=== PATIENT | female | born 1985 | race Caucasian/White ===

== ENCOUNTER 2021-04-20 16:00 | Outpatient (REF) | payer MEDICARE, MEDICAID, SELFPAY ==
[2021-04-20 16:24] LABS: MANUAL DIFF FLAG NO
[2021-04-20 16:52] LABS: Basophils Percent Auto 0.5 % (0-2); Hematocrit 32.7 % (37-47); Hemoglobin 9.8 g/dl (12.0-16.0); Imm Gran Abs Auto 0.03 X10*3/uL (0.00-0.03); Imm Gran Pct Auto 0.5 % (0.0-0.4); Lymphocytes Absolute Auto 0.9 X10*3/uL (1.2-4.9); Lymphocytes Percent Auto 14.2 % (20-40); Mean Corpuscular Hemoglobin 22.4 pg (27.0-33.0); Mean Corpuscular Volume 74.8 fL (80-98); Mean Platelet Volume 8.6 fL (9.4-12.3); Monocytes Absolute Auto 0.5 X10*3/uL (0.1-1.2); Monocytes Percent Auto 7.3 % (2-11); Neutrophils Absolute Auto 5.1 X10*3/uL (2.0-8.3); Neutrophils Percent Auto 77.5 % (45-73); Platelet Count 599 X10*3/uL (160-400); Red Blood Count 4.37 X10*6/uL (4.20-5.50); Red Cell Distribution Width 18.2 % (11.0-16.0); White Blood Count 6.6 X10*3/uL (4.8-10.8)
[2021-04-20 17:32] LABS: Alanine Aminotransferase 24 U/L (0-31); Albumin Level 4.2 g/dL (3.5-5.0); Anion Gap 13 (12-20); Aspartate Amino Transferase 17 U/L (5-31); C Reactive Protein 0.08 mg/dL (< or = 0.50); Carbon Dioxide 24 mmol/L (22-29); Chloride 105 mmol/L (96-108); Estimated Glomerular Filt Rate > 60; Potassium 4.4 mmol/L (3.3-5.1); Sodium 138 mmol/L (135-145)
[2021-04-20 17:47] LABS: Erythrocyte Sedimentation Rate 10 MM/HR (0-20)
[2021-04-21 17:01] LABS: Complement C3 101 mg/dL (83-193)
[2021-04-22 07:16] LABS: Anti DNA DS Antibody 9 IU/mL
== END 2021-04-20 16:01 | disposition home or self-care (01) ==
LOC: HO.LAB 16:00
PROVIDERS: Visit Provider Internal Medicine
DX: Z51.81 Encounter for therapeutic drug level monitoring (principal); Z79.899 Other long term (current) drug therapy
CPT/HCPCS: 36415; 80051; 82040; 82565; 84450; 84460; 85025; 85652; 86140; 86160; 86225

== ENCOUNTER 2021-07-15 19:33 | Emergency (ER) | payer MEDICARE, MEDICAID, SELFPAY ==
--- NOTE | ~2021-07-15 | CT_ITS ---
EXAMINATION: CT HEAD WITHOUT CONTRAST CLINICAL INFORMATION: Headache. History of SDH on coumadin. COMPARISON: MRI brain performed earlier same date TECHNIQUE: Contiguous axial imaging was performed from the skull base to vertex without intravenous administration of contrast. This CT examination was performed using dose optimization techniques as appropriate, variously including the following: *Automated exposure control *Adjustment of mA and/or kV according to patient size (this includes techniques or standardized protocols for targeted exams where dose is matched to indication/reason for exam; i.e. extremities or head) *Use of iterative reconstruction technique DLP: 665 mGy-cm FINDINGS: Stable thin mixed attenuation but largely hypodense left convexity subdural collection, with some dependent hyperdense fluid. Trace right posterior convexity subdural collection. These were better delineated on the previous MRI. No new intracranial hemorrhage. Stable mild rightward midline shift of approximately 3 to 4 mm. Stable arachnoid cysts along the vertices, more pronounced on the right. Tiny chronic infarction in right parietal lobe. Intrauterine system normal in size and configuration. The osseous structures and soft tissues are normal. The mastoid air cells and visualized portions of the paranasal sinuses are well aerated. CT/CT head/brain wo con IMPRESSION: Stable bilateral convexity subdural collections, larger on the left associated with 3-4 mm rightward midline shift. No new acute intracranial hemorrhage.
[2021-07-15 19:42] VITALS: BP 104/68; BP 120/84; PULSE 114; PULSE 120; O2SAT 96; O2SAT 98; BMI 27.1
--- NOTE | 2021-07-15 19:46 | ED.HA ---
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 Meyer who did the MRI of the brain which showed multiple subdural hematomas as a cause for the headache and advise the patient to go to the nearest hospital and to be transferred to [facility] for further evaluation and care patient's mother tested her INR yesterday was 3.5. No history of head injury no change in residual deficit no vomiting no fever or chills Related Data Home Medications Medication Instructions Recorded Confirmed acetaminophen 325 mg tablet 500 mg BID 07/15/21 07/15/21 (Tylenol) aspirin 81 mg chewable tablet 1 tab PO DAILY 07/15/21 07/15/21 atorvastatin 80 mg tablet 1 tab PO DAILY 07/15/21 07/15/21 azathioprine 50 mg tablet 1 tab PO DAILY 07/15/21 07/15/21 folic acid 1 mg tablet 1 tab PO DAILY 07/15/21 07/15/21 methotrexate sodium 2.5 mg tablet 5 tab PO QWEEK 07/15/21 07/15/21 metoprolol succinate 50 mg 1 tab PO DAILY 07/15/21 07/15/21 tablet,extended release 24 hr nortriptyline 50 mg capsule 100 mg PO DAILY 07/15/21 07/15/21 pantoprazole 20 mg tablet,delayed 1 tab PO DAILY 07/15/21 07/15/21 release prednisone 10 mg tablet 4 tab PO DAILY 07/15/21 07/15/21 pregabalin 100 mg capsule 1 cap PO TID 07/15/21 07/15/21 tizanidine 2 mg tablet 1 tab PO BEDTIME 07/15/21 07/15/21 tramadol 100 mg tablet,extended 1 tab PO DAILY PRN 07/15/21 07/15/21 release 24 hr warfarin 5 mg tablet 1 tab PO DAILY 07/15/21 07/15/21 Allergies Allergy/AdvReac Type Severity Reaction Status Date / Time morphine [MORPHINE] Allergy Mild Nausea Verified 07/15/21 20:27 vancomycin [VANCOMYCIN] Allergy Mild LOCALIZED Verified 07/15/21 20:27 REDDNESS HIVE IV azithromycin Allergy Unknown rash Verified 07/15/21 20:27 levofloxacin [From LEVAQUIN] Allergy Unknown RASH Verified 07/15/21 20:27 codeine [CODEINE] AdvReac Mild Nausea Verified 07/15/21 20:27 erythromycin base AdvReac Mild VOMITING Verified 07/15/21 20:27 [ERYTHROMYCIN BASE] Codeine Phosphate Allergy Unknown Nausea Uncoded 07/15/21 20:27 Review of Systems Review of Systems: Yes all other systems are reviewed and are negative [facility] Past Medical History Attestation statement: The following information was validated with the patient. Social History Social History Advance Directives: No Patient : No Physical Exam Vital Signs: Vital Signs: Last Vital Signs Pulse 90 07/16/21 00:30 Resp 16 07/16/21 01:14 BP 102/78 07/16/21 00:30 Pulse Ox 97 07/16/21 00:30 BMI result Body Mass Index 27.1 Appearance: Alert. Oriented X3. No acute distress. Eyes: Congenital dysconjugate eyes, No Nystagmus ENT: Pharynx normal. Oral Mucosa moist Neck: Normal inspection. Neck supple. CVS: Normal heart rate and rhythm. Pulses normal. Respiratory: No respiratory distress. Equal air entry bilateral, no wheezing/rales/rhonchi Abdomen: Soft and nontender. Bowel sounds are present, no mass palpable, Skin: Skin warm and dry. Normal skin color. Normal skin turgor. Extremities: No lower extremity edema. No calf tenderness Neuro: Oriented X 3. No motor deficit. No sensory deficit.No cerebellar signs , cranial nerves II-XII intact Course Reevaluation(s) Reevaluation #1: After further discussion with the patient's family it was the radiologist who told the family to go to the hospital to be transferred to [facility] not the neurologist Time: 21:02 MDM - Headache MDM Narrative Medical decision making narrative: 1999 Patient with headache for last 6 week on Coumadin INR 3.5 had MRI which showed subdural hematoma will give vitamin K to reverse the effect of Coumadin at this time patient does not have any acute increase in headache no nausea no vomiting no head injury so will hold FFP/Kcentra at this time 20:55 patient with GCS 15 case discussed with neurosurgeon at [facility] Dr. Dobbs advised no need of urgent transfer at this time patient can be managed at [facility] advised to give vitamin K and Kcentra and repeat CT scan in 6-8 hours and if no new change patient can be discharged to follow-up with him tomorrow after 09:00 phone number [phone] MRI report reviewed showed 0.5 cm on the right and 0.2 cm on the left side age indeterminate subdural hematoma with 0.4 cm rightward midline shift 01:00 patient had a repeat CT scan and has was complaining of a headache and body aches has not taken her Lyrica and tramadol which she is supposed to take it repeat CT scan was done which did not show any change in subdural bleed will give her morphine for pain neuro intact GCS 15 Lab Data Result diagrams: 07/15/21 19:57 07/15/21 19:57 Labs: Lab Results 07/15/21 07/15/21 07/15/21 Range/Units 19:57 19:57 19:57 WBC 12.6 H (4.8-10.8) X10*3/uL RBC 4.64 (4.20-5.50) X10*6/uL Hgb 12.6 (12.0-16.0) g/dl Hct 39.3 (37.0-47.0) % MCV 84.7 (80.0-98.0) fL MCH 27.2 (27.0-33.0) pg MCHC 32.1 (31.0-35.0) g/dl RDW 18.9 H (11.0-16.0) % Plt Count 645 H (160-400) X10*3/uL MPV 8.7 L (9.4-12.3) fL Immature Gran % (Auto) 0.6 H (0.0-0.4) % Neut % (Auto) 82.8 H (45-73) % Lymph % (Auto) 8.9 L (20-40) % [place] % (Auto) 7.5 (2-11) % Eos % (Auto) 0.0 (0-4) % Baso % (Auto) 0.2 (0-2) % Lymph # (Auto) 1.1 L (1.2-4.9) X10*3/uL [place] # (Auto) 0.9 (0.1-1.2) X10*3/uL Eos # (Auto) 0.0 (0.0-0.4) X10*3/uL Baso # (Auto) 0.0 (0.0-0.2) X10*3/uL Abs Immat Gran (auto) 0.08 H (0.00-0.03) X10*3/uL Absolute Neuts (auto) 10.4 H (2.0-8.3) x10*3/uL Absolute Nucleated RBC 0.000 (0.0-0.012) X10*3/uL Nucleated RBC % (auto) 0.0 (0.0-0.2) /100WBC PT 58.8 H (9.9-13.0) SEC INR 5.0 H* (0.9-1.1) APTT 66.4 H* (24.1-38.0) SEC Sodium 138 (135-145) mmol/L Potassium 4.0 (3.3-5.1) mmol/L Chloride 107 (96-108) mmol/L Carbon Dioxide 23 (22-29) mmol/L Anion Gap 12 (12-20) BUN 10 (9-16) mg/dL Creatinine 0.68 (0.5-1.4) mg/dL Estim Creat Clear Calc 104.7 Estimated GFR > 60 Random Glucose 116 H (60-115) mg/dL Calcium 9.0 (8.4-10.2) mg/dL Urine Color Urine Appearance Urine pH (5.0-8.0) Ur Specific [place] (1.005-1.025) Urine Protein (NEG-TRACE) MG/DL Urine Glucose (UA) (NEG) MG/DL Urine Ketones (NEG) MG/DL Urine Blood (NEG) Urine Nitrite (NEG) Ur Leukocyte Esterase (NEG) Urine RBC (0) /HPF Urine WBC (0-4) /HPF Ur Squamous Epith Cells /LPF Urine Bacteria /LPF COVID-19 ([facility]IS) (Negative) COVID-19 Clin Com 07/15/21 07/15/21 Range/Units 19:57 20:05 WBC (4.8-10.8) X10*3/uL RBC (4.20-5.50) X10*6/uL Hgb (12.0-16.0) g/dl Hct (37.0-47.0) % MCV (80.0-98.0) fL MCH (27.0-33.0) pg MCHC (31.0-35.0) g/dl RDW (11.0-16.0) % Plt Count (160-400) X10*3/uL MPV (9.4-12.3) fL Immature Gran % (Auto) (0.0-0.4) % Neut % (Auto) (45-73) % Lymph % (Auto) (20-40) % [place] % (Auto) (2-11) % Eos % (Auto) (0-4) % Baso % (Auto) (0-2) % Lymph # (Auto) (1.2-4.9) X10*3/uL [place] # (Auto) (0.1-1.2) X10*3/uL Eos # (Auto) (0.0-0.4) X10*3/uL Baso # (Auto) (0.0-0.2) X10*3/uL Abs Immat Gran (auto) (0.00-0.03) X10*3/uL Absolute Neuts (auto) (2.0-8.3) x10*3/uL Absolute Nucleated RBC (0.0-0.012) X10*3/uL Nucleated RBC % (auto) (0.0-0.2) /100WBC PT (9.9-13.0) SEC INR (0.9-1.1) APTT (24.1-38.0) SEC Sodium (135-145) mmol/L Potassium (3.3-5.1) mmol/L Chloride (96-108) mmol/L Carbon Dioxide (22-29) mmol/L Anion Gap (12-20) BUN (9-16) mg/dL Creatinine (0.5-1.4) mg/dL Estim Creat Clear Calc Estimated GFR Random Glucose (60-115) mg/dL Calcium (8.4-10.2) mg/dL Urine Color YELLOW Urine Appearance CLEAR Urine pH 6.5 (5.0-8.0) Ur Specific [place] 1.010 (1.005-1.025) Urine Protein NEG (NEG-TRACE) MG/DL Urine Glucose (UA) NEG (NEG) MG/DL Urine Ketones NEG (NEG) MG/DL Urine Blood TRACE (NEG) Urine Nitrite NEG (NEG) Ur Leukocyte Esterase NEG (NEG) Urine RBC 0-2 (0) /HPF Urine WBC 1-4 (0-4) /HPF Ur Squamous Epith Cells TRACE /LPF Urine Bacteria TRACE /LPF COVID-19 ([facility]IS) Negative (Negative) COVID-19 Clin Com See Note Discharge Plan Discharge Clinical Impression: Subdural hematoma Patient Disposition: Still a Patient Prescriptions: No Action atorvastatin 80 mg tablet 1 tab PO DAILY RF: 0 acetaminophen [Tylenol] 325 mg Tablet 500 mg BID RF: 0 prednisone 10 mg tablet 4 tab PO DAILY RF: 0 tizanidine 2 mg tablet 1 tab PO BEDTIME RF: 0 metoprolol succinate 50 mg tablet extended release 24 hr 1 tab PO DAILY RF: 0 azathioprine 50 mg tablet 1 tab PO DAILY RF: 0 pantoprazole 20 mg tablet,delayed release (DR/EC) 1 tab PO DAILY RF: 0 methotrexate sodium 2.5 mg tablet 5 tab PO QWEEK RF: 0 warfarin 5 mg tablet 1 tab PO DAILY RF: 0 aspirin 81 mg tablet,chewable 1 tab PO DAILY RF: 0 folic acid 1 mg tablet 1 tab PO DAILY RF: 0 nortriptyline 50 mg capsule 100 mg PO DAILY RF: 0 pregabalin 100 mg capsule 1 cap PO TID RF: 0 tramadol 100 mg tablet extended release 24 hr 1 tab PO DAILY PRN (Reason: Pain) RF: 0
[2021-07-15 20:01] LABS: MANUAL DIFF FLAG NO
[2021-07-15 20:02] LABS: Basophils Percent Auto 0.2 % (0-2); Hematocrit 39.3 % (37.0-47.0); Hemoglobin 12.6 g/dl (12.0-16.0); Imm Gran Abs Auto 0.08 X10*3/uL (0.00-0.03); Imm Gran Pct Auto 0.6 % (0.0-0.4); Lymphocytes Absolute Auto 1.1 X10*3/uL (1.2-4.9); Lymphocytes Percent Auto 8.9 % (20-40); Mean Corpuscular HGB Conc 32.1 g/dl (31.0-35.0); Mean Corpuscular Hemoglobin 27.2 pg (27.0-33.0); Mean Corpuscular Volume 84.7 fL (80.0-98.0); Mean Platelet Volume 8.7 fL (9.4-12.3); Monocytes Absolute Auto 0.9 X10*3/uL (0.1-1.2); Monocytes Percent Auto 7.5 % (2-11); Neutrophils Absolute Auto 10.4 x10*3/uL (2.0-8.3); Neutrophils Percent Auto 82.8 % (45-73); Platelet Count 645 X10*3/uL (160-400); Red Blood Count 4.64 X10*6/uL (4.20-5.50); Red Cell Distribution Width 18.9 % (11.0-16.0); White Blood Count 12.6 X10*3/uL (4.8-10.8)
[2021-07-15 20:13] LABS: Appearance Urine CLEAR; Color Urine YELLOW; Glucose Urine UA NEG (NEG); Leukocyte Esterase Urine NEG (NEG); Nitrite Urine NEG (NEG); PH 6.5 (5.0-8.0); Urine Blood TRACE (NEG); Urine Ketones NEG (NEG); Urine Protein NEG (NEG-TRACE)
[2021-07-15 20:15] LABS: Prothrombin Time 58.8 SEC (9.9-13.0)
[2021-07-15 20:21] LABS: Anion Gap 12 (12-20); Blood Urea Nitrogen 10 mg/dL (9-16); Carbon Dioxide 23 mmol/L (22-29); Chloride 107 mmol/L (96-108); Creatinine Clr Calc Pharmacy 104.7; Estimated Glomerular Filt Rate > 60; Glucose Random 116 mg/dL (60-115); Sodium 138 mmol/L (135-145)
[2021-07-15] MEDS: Phytonadione (Vit K1) 5 MG in 0.9 % Sodium Chloride 50 ML 50.5 MG IV (20:21)
[2021-07-15 20:24] LABS: COVID-19 Test Negative (Negative)
[2021-07-15 20:45] LABS: Bacteria Urine TRACE /LPF; RBC Urine 0-2 /HPF (0); Squamous Epithelial Cell Urine TRACE /LPF
--- NOTE | 2021-07-15 20:48 | PC.NURSE ---
lab called critical. INR of 5.0 and PTT of 66.4.
[2021-07-15 20:49] LABS: Partial Thromboplastin Time 66.4 SEC (24.1-38.0)
[2021-07-15] MEDS: Hum Prothrombin Cplx(PCC)4Fact 2,500 UNIT in Container,Empty 0 ML 480 UNIT IV (21:16)
--- NOTE | 2021-07-15 21:21 | PC.NURSE ---
Naomie NEGRETE witnessed start and rate of kcentra
[2021-07-15 21:25] VITALS: BP 110/72; PULSE 89; O2SAT 98
[2021-07-16 00:30] VITALS: BP 102/78; PULSE 90; O2SAT 97
[2021-07-16] MEDS: TiZANidine HCL 4 MG TABLET 2 MG PO (00:51)
[2021-07-16 01:14] VITALS: RESP 16
[2021-07-16] MEDS: ondansetron HCL 4 MG/2 ML VIAL IVPUSH (01:14)
[2021-07-16] MEDS: Morphine Sulfate 4 MG/ML CARTRIDGE IVPUSH (01:14)
[2021-07-16 02:56] VITALS: BP 100/60; PULSE 85; RESP 16; TEMP 36.4; O2SAT 97
[2021-07-16 04:52] VITALS: BP 91/51; PULSE 87; RESP 16; TEMP 36.2; O2SAT 96
[2021-07-16 05:07] VITALS: BP 133/83; PULSE 84; RESP 16; O2SAT 100
[2021-07-16 05:12] LABS: INTERNATIONAL NORM RATIO 1.1 (0.9-1.1)
== END 2021-07-16 07:42 | disposition home or self-care (01) ==
PROVIDERS: Emergency Provider Internal Medicine; PCP Internal Medicine
DX: I62.00 Nontraumatic subdural hemorrhage, unspecified (principal); Z79.82 Long term (current) use of aspirin; Z79.01 Long term (current) use of anticoagulants; Z79.899 Other long term (current) drug therapy; Z20.822 Contact with and (suspected) exposure to COVID-19
CPT/HCPCS: 36415; 70450; 80048; 81001; 85025; 85610; 85730; 87635; 96365; 96375; 99285; J2270; J2405; J3430; J7168

== ENCOUNTER 2021-07-20 11:52 | Outpatient (REF) | payer MEDICARE, MEDICAID, SELFPAY ==
[2021-07-20 13:29] LABS: Influenza A PCR NEGATIVE (Negative); Influenza B PCR NEGATIVE (Negative); Resp Syncy Virus RNA Qual PCR NEGATIVE (Negative); SARS COV2 PCR INHOUSE NEGATIVE (Negative)
== END 2021-07-20 11:53 | disposition home or self-care (01) ==
LOC: HO.LAB 11:52
PROVIDERS: Visit Provider Internal Medicine
DX: Z20.822 Contact with and (suspected) exposure to COVID-19 (principal)
CPT/HCPCS: 0241U